=== PATIENT | female | born 1950 | race Caucasian/White ===

== ENCOUNTER 2021-08-06 10:58 | Emergency (ER) | payer MEDICARE ==
[~2021-08-06] VITALS: Ht 162.6 cm; Wt 73.0 kg
--- NOTE | 2021-08-06 11:00 | NUR ---
[facility] ALS TO ER BED 2
[2021-08-06 11:02] VITALS: BP 133/88
--- NOTE | 2021-08-06 11:05 | NUR ---
71 y/o F BIBA from [facility] c/o chest pain since last night and SOB x 2 days. Patient A&Ox4, ambulatory, states 10, substernal sharp/pressure/constant chest pain that radiates down to LLQ. Patient presents with worsening pain upon palpation to abdomen and chest. States associated chills; denies nausea, vomiting, fever, cough, urinary symptoms. Cap refill <3 seconds, Skin pink/warm/dry. child monitor in place. SpO2 97% on room air HR 87 strong/regular at the radial. 12 lead by EMS Sinus rhythm @ HR 94 with RBBB. Bed locked in lowest position, side rails x 1, call light in reach. PMH: 4 stents, HTN Meds: Cozaar, metoprolol, ASA 162mg, plavix
--- NOTE | 2021-08-06 11:21 | NUR ---
Dr. Cr is evaluating patient at bedside.
[2021-08-06] MEDS: MORPHINE SULFATE 4 MG/ML SYR IM ONE (11:34)
--- NOTE | 2021-08-06 11:35 | NUR ---
EMT at bedside for EKG
--- NOTE | 2021-08-06 12:22 | NUR ---
MOVED TO CHAIR A
[2021-08-06] MEDS ORDERED: ACET-8386 PO (12:25)
[2021-08-06 13:04] VITALS: BP 146/97
--- NOTE | 2021-08-06 13:04 | NUR ---
Patient discharged with v/s stable. Written and verbal after care instructions given and explained ABOUT CHEST WALL PAIN. Patient alert, oriented and verbalized understanding of instructions. Ambulatory with steady gait. All questions addressed prior to discharge. ID band removed. Patient advised to follow up with PMD. Rx of HYDROCODON-ACETAMINOPHEN 5-325 given. Patient educated on indication of medication including possible reaction and side effects. EDUCATED ON USE OF NARCOTICS, ADVISED TO AVOID ALCOHOL AND DRIVING WHILE USING. Opportunity to ask questions provided and answered.
== END 2021-08-06 13:04 | disposition home or self-care (01) ==
LOC: MED 10:58
DX: R07.89 Other chest pain (principal); R10.9 Unspecified abdominal pain; Z79.899 Other long term (current) drug therapy; Z98.890 Other specified postprocedural states
CPT/HCPCS: 93005; 96372; 99283; J2270

== ENCOUNTER 2021-08-06 13:40 | Emergency (ER) | payer MEDICARE ==
[~2021-08-06] VITALS: Ht 162.6 cm; Wt 73.0 kg
[~2021-08-06 13:40] MED LIST: ACET-8386 PO
[2021-08-06 14:35] VITALS: BP 162/98
[2021-08-06 16:47] LABS: BASOPHILS % (AUTO) 0.3 % (0.0-2.0); EOSINOPHILS # (AUTO) 0.2 K/uL (0-0.4); EOSINOPHILS % (AUTO) 1.7 % (0.0-4.0); HEMATOCRIT 37.8 % (36-48); HEMOGLOBIN 12.3 g/dL (12.0-16.0); LYMPHOCYTES # (AUTO) 2.2 K/uL (2.5-16.5); LYMPHOCYTES % (AUTO) 16.6 % (20.5-51.1); MEAN CORPUSCULAR HEMOGLOBIN 27 pg (27-31); MEAN CORPUSCULAR HGB CONC 33 g/dL (33-37); MEAN CORPUSCULAR VOLUME 84.1 fL (80-94); MONOCYTES # (AUTO) 1.2 K/uL (0.8-1.0); MONOCYTES % (AUTO) 8.7 % (1.7-9.3); NEUTROPHILS # (AUTO) 9.8 K/uL (1.8-7.7); NEUTROPHILS % (AUTO) 72.7 % (42.2-75.2); PLATELET COUNT (AUTO) 449 K/uL (140-450); RED CELL DISTRIBUTION WIDTH 20.7 % (11.6-13.7); WHITE BLOOD COUNT (AUTO) 13.5 K/uL (4.8-10.8)
[2021-08-06 17:06] LABS: ALBUMIN 3.8 g/dL (3.4-5.0); ANION GAP 16.4 (8-16); ASPARTATE AMINOTRANSFERASE 18 U/L (15-37); CARBON DIOXIDE 25.9 mmol/L (21-32); CHLORIDE 100 mmol/L (98-107); CREATININE 1.7 mg/dL (0.6-1.3); GLUCOSE 193 mg/dL (74-106); POTASSIUM 3.3 mmol/L (3.5-5.1); SODIUM SERUM 139 mmol/L (136-145); TOTAL BILIRUBIN 0.6 mg/dL (0.0-1.0); UREA NITROGEN, BLOOD 29 mg/dL (7-18)
[2021-08-06 18:41] VITALS: BP 157/111
--- NOTE | 2021-08-06 18:41 | NUR ---
Patient discharged with v/s stable. Written and verbal after care instructions ABOUT COSTOCHONDRITIS given and explained. Patient verbalized understanding. Ambulatory with steady gait. All questions addressed prior to discharge. Advised to follow up with PMD.
== END 2021-08-06 18:41 | disposition home or self-care (01) ==
LOC: MED 13:40
DX: M94.0 Chondrocostal junction syndrome [Tietze] (principal); I10 Essential (primary) hypertension; Z79.899 Other long term (current) drug therapy
CPT/HCPCS: 36415; 71045; 80053; 83880; 84484; 85025; 99284

== ENCOUNTER 2021-11-18 19:01 | Emergency (ER) | payer MEDICARE ==
[~2021-11-18] VITALS: Ht 162.6 cm; Wt 72.6 kg
[2021-11-18 19:06] VITALS: BP 161/94
[2021-11-18 20:28] LABS: BASOPHILS % (AUTO) 0.5 % (0.0-2.0); EOSINOPHILS # (AUTO) 0.4 K/uL (0-0.4); EOSINOPHILS % (AUTO) 4.1 % (0.0-4.0); HEMATOCRIT 35.1 % (36-48); HEMOGLOBIN 11.2 g/dL (12.0-16.0); LYMPHOCYTES # (AUTO) 1.6 K/uL (2.5-16.5); MEAN CORPUSCULAR HEMOGLOBIN 25 pg (27-31); MEAN CORPUSCULAR HGB CONC 32 g/dL (33-37); MEAN CORPUSCULAR VOLUME 78.5 fL (80-94); MONOCYTES # (AUTO) 0.7 K/uL (0.8-1.0); MONOCYTES % (AUTO) 7.9 % (1.7-9.3); NEUTROPHILS # (AUTO) 5.9 K/uL (1.8-7.7); NEUTROPHILS % (AUTO) 68.5 % (42.2-75.2); PLATELET COUNT (AUTO) 326 K/uL (140-450); RED BLOOD CELL COUNT(AUTO) 4.48 MIL/uL (4.20-5.40); RED CELL DISTRIBUTION WIDTH 17.9 % (11.6-13.7); WHITE BLOOD COUNT (AUTO) 8.6 K/uL (4.8-10.8)
[2021-11-18 20:45] LABS: PROTHROMBIN TIME 10.1 secs (10.8-13.4)
[2021-11-18 20:50] LABS: ALBUMIN 3.7 g/dL (3.4-5.0); ANION GAP 15.1 (8-16); ASPARTATE AMINOTRANSFERASE 20 U/L (15-37); CARBON DIOXIDE 22.8 mmol/L (21-32); CHLORIDE 104 mmol/L (98-107); CREATININE 1.2 mg/dL (0.6-1.3); GLUCOSE 148 mg/dL (74-106); POTASSIUM 3.9 mmol/L (3.5-5.1); SODIUM SERUM 138 mmol/L (136-145); TOTAL BILIRUBIN 0.4 mg/dL (0.0-1.0); UREA NITROGEN, BLOOD 19 mg/dL (7-18)
[2021-11-19] MEDS ORDERED: LID5T TP (00:24)
[2021-11-19 00:42] VITALS: BP 161/94
--- NOTE | 2021-11-19 00:42 | NUR ---
Patient discharged with v/s stable. Written and verbal after care instructions given and explained. Patient alert, oriented and verbalized understanding of instructions. Ambulatory with steady gait. All questions addressed prior to discharge. ID band removed. Patient advised to follow up with PMD. Rx of LIDODERM given. Patient educated on indication of medication including possible reaction and side effects. Opportunity to ask questions provided and answered.
== END 2021-11-19 00:42 | disposition home or self-care (01) ==
LOC: MED 19:01
DX: R07.89 Other chest pain (principal); R11.2 Nausea with vomiting, unspecified; I10 Essential (primary) hypertension; Z79.899 Other long term (current) drug therapy; Z98.890 Other specified postprocedural states
CPT/HCPCS: 36415; 71045; 80053; 83880; 84484; 85025; 85610; 85730; 93005; 99285